=== PATIENT | female | born 1990 | race Caucasian/White ===

== ENCOUNTER 2016-07-28 20:32 | Emergency (ER) | payer OTHER ==
[2016-07-28 21:19] VITALS: RESP 20
--- NOTE | 2016-07-28 22:01 | ED ---
General Adult HPI - General Chief complaint: ENT Stated complaint: Jaw painful to open Time Seen by Provider: 07/28/16 21:31 Source: patient, RN notes reviewed, old records reviewed Mode of arrival: ambulatory Limitations: no limitations - History of Present Illness Initial comments: This is a 25-year-old female to the ER today for evaluation of left jaw tenderness, left jaw pain. Worse with movement. History of jaw dislocation. No recent trauma. No pain control modifying factors for pain at home. Patient' s in no acute distress. - Related Data Home Medications Medication Instructions Recorded Confirmed PARoxetine HCL [Paxil] 40 mg PO DAILY 09/17/15 07/28/16 traMADol HCl [Ultram] 50 mg PO Q6HR PRN 09/17/15 07/28/16 Fluticasone Nasal [place] [Flonase 1 spray EA NOSTRIL DAILY PRN 07/28/16 07/28/16 Nasal [place]] Omeprazole [PriLOSEC] 20 mg PO AC-BID 07/28/16 07/28/16 Allergies Allergy/AdvReac Type Severity Reaction Status Date / Time latex Allergy Rash/Hives Verified 07/28/16 21:27 Review of Systems ROS Statement: Those systems with pertinent positive or pertinent negative responses have been documented in the HPI. ROS Other: All systems not noted in ROS Statement are negative. Past Medical History Additional Past Medical History / Comment(s): club foot History of Any Multi-Drug Resistant Organisms: None Reported Additional Past Surgical History / Comment(s): foot surgery Past Psychological History: Anxiety Smoking Status: Current every day smoker Past Alcohol Use History: None Reported Past Drug Use History: None Reported General Exam Limitations: no limitations General appearance: alert, in no apparent distress Head exam: Present: atraumatic, normocephalic, normal inspection Eye exam: Present: normal appearance, PERRL, EOMI. Absent: scleral icterus, conjunctival injection, periorbital swelling ENT exam: Present: normal exam, mucous membranes moist Neck exam: Present: normal inspection. Absent: tenderness, meningismus, lymphadenopathy Respiratory exam: Present: normal lung sounds bilaterally. Absent: respiratory distress, wheezes, rales, rhonchi, stridor Cardiovascular Exam: Present: regular rate, normal rhythm, normal heart sounds. Absent: systolic murmur, diastolic murmur, rubs, gallop, clicks GI/Abdominal exam: Present: soft, normal bowel sounds. Absent: distended, tenderness, guarding, rebound, rigid Extremities exam: Present: normal inspection, full ROM, normal capillary refill. Absent: tenderness, pedal edema, joint swelling, calf tenderness Back exam: Present: normal inspection Neurological exam: Present: alert, oriented X3, CN II-XII intact Psychiatric exam: Present: normal affect, normal mood Skin exam: Present: warm, dry, intact, normal color. Absent: rash Course Vital Signs 07/28/16 21:14 Temperature 99.4 F Pulse Rate 86 Respiratory 20 Rate Blood Pressure 131/91 O2 Sat by Pulse 100 Oximetry Medical Decision Making - Medical Decision Making 25 year old female to the ER with joint history of drug dislocation left jaw tenderness. Likely TMJ arthritis, patient given anti-inflammatory, pain control for night. Patient be discharged Disposition Clinical Impression: TMJ arthritis, TMJ (dislocation of temporomandibular joint) Disposition: HOME SELF-CARE Condition: Good Instructions: Temporomandibular Disorder (ED) Referrals: Felipe Davis MD [Primary Care Provider] - 1-2 days
[2016-07-28 22:16] VITALS: BP 134/70; PULSE 78; TEMP 98.2
== END 2016-07-28 22:16 | disposition home or self-care (01) ==
LOC: EC 20:32
DX: M26.69 Other specified disorders of temporomandibular joint (principal); F41.9 Anxiety disorder, unspecified; F17.200 Nicotine dependence, unspecified, uncomplicated; Z91.040 Latex allergy status; Z79.899 Other long term (current) drug therapy
CPT/HCPCS: 99283

== ENCOUNTER 2016-08-04 05:30 | Emergency (ER) | payer OTHER ==
[2016-08-04] MEDS ORDERED: ACETAMINOPHEN TAB 500 MG TAB PO STA (06:02)
[2016-08-04] MEDS ORDERED: IBUPROFEN 600 MG TAB PO STA (06:02)
[2016-08-04] MEDS ORDERED: IPRATROPIUM-ALBUTEROL 3 ML NEB INHALATION STA (06:03)
--- NOTE | 2016-08-04 06:06 | ED ---
General Adult HPI - General Source: patient, RN notes reviewed Mode of arrival: ambulatory Limitations: no limitations <Steve Lo - Last Filed: 08/04/16 06:03> <Chuckie Liao - Last Filed: 08/04/16 07:46> - General Chief complaint: Upper Respiratory Infection Stated complaint: ENT, fever Time Seen by Provider: 08/04/16 05:59 - History of Present Illness Initial comments: Patient is a pleasant 25-year-old female presenting to the emergency department with complaints of cough and fever. Symptoms started almost 2 weeks ago. Symptoms have worsened over the past 3 days or so. patient was seen recently at a different ER and diagnosed with pharyngitis.patient does have cough. Patient feels a little bit short of breath only during cough. Cough has had some mild clear white sputum. Patient has had fevers. Patient did not take any medication yet today for fever. No abdominal pain. No leg pain or leg swelling. Patient does have sore throat. (Steve Lo) - Related Data Home Medications Medication Instructions Recorded Confirmed PARoxetine HCL [Paxil] 40 mg PO DAILY 09/17/15 08/04/16 traMADol HCl [Ultram] 50 mg PO Q6HR PRN 09/17/15 08/04/16 Fluticasone Nasal [place] [Flonase 1 spray EA NOSTRIL DAILY PRN 07/28/16 08/04/16 Nasal [place]] Omeprazole [PriLOSEC] 20 mg PO DAILY 07/28/16 08/04/16 Diazepam [Valium] 5 mg PO HS PRN 08/04/16 08/04/16 Naproxen [Naprosyn] 500 mg PO Q12HR PRN 08/04/16 08/04/16 Previous Rx's Medication Instructions Recorded Acetaminophen with Codeine 1 tab PO Q4H PRN #20 tab 07/28/16 [Tylenol w/codeine #3] Acetaminophen with Codeine 1 tab PO Q4H PRN #20 tab 08/04/16 [Tylenol w/codeine #3] Albuterol Sulfate [Proair Hfa] 1 - 2 puff INHALATION Q4H PRN #1 08/04/16 inhaler Azithromycin [Zithromax Z-pack] 0 mg PO DIRECTED #6 tab 08/04/16 Ibuprofen [Motrin] 600 mg PO Q6HR PRN #60 tab 08/04/16 Allergies Allergy/AdvReac Type Severity Reaction Status Date / Time latex Allergy Rash/Hives Verified 08/04/16 07:31 Review of Systems ROS Other: All systems not noted in ROS Statement are negative. Constitutional: Reports: fever, chills Eyes: Denies: eye pain ENT: Reports: throat pain. Denies: ear pain Respiratory: Reports: cough Cardiovascular: Denies: chest pain Endocrine: Reports: fatigue Gastrointestinal: Denies: abdominal pain Genitourinary: Denies: dysuria Musculoskeletal: Denies: back pain Skin: Denies: rash Neurological: Denies: weakness <Steve Lo - Last Filed: 08/04/16 06:03> ROS Other: All systems not noted in ROS Statement are negative. <Chuckie Liao - Last Filed: 08/04/16 07:46> ROS Statement: Those systems with pertinent positive or pertinent negative responses have been documented in the HPI. Past Medical History Additional Past Medical History / Comment(s): club foot History of Any Multi-Drug Resistant Organisms: None Reported Additional Past Surgical History / Comment(s): foot surgery Past Psychological History: Anxiety Smoking Status: Current every day smoker Past Alcohol Use History: None Reported Past Drug Use History: None Reported <Steve Lo - Last Filed: 08/04/16 06:03> General Exam Limitations: no limitations General appearance: alert, in no apparent distress Head exam: Present: atraumatic Eye exam: Present: normal appearance, PERRL ENT exam: Present: other (pharyngeal erythema) Neck exam: Present: normal inspection, lymphadenopathy (with mild tenderness). Absent: meningismus Respiratory exam: Present: rhonchi Cardiovascular Exam: Present: tachycardia GI/Abdominal exam: Present: soft. Absent: tenderness Extremities exam: Present: normal inspection. Absent: pedal edema, calf tenderness Neurological exam: Present: alert Psychiatric exam: Present: normal affect, normal mood Skin exam: Present: normal color. Absent: rash <Steve Lo - Last Filed: 08/04/16 06:03> Course <Steve Lo - Last Filed: 08/04/16 06:03> <Chuckie Liao - Last Filed: 08/04/16 07:46> Vital Signs 08/04/16 08/04/16 08/04/16 05:32 06:12 06:19 Temperature 101.4 F H Pulse Rate 109 H 109 H 100 Respiratory 20 Rate Blood Pressure 142/74 O2 Sat by Pulse 91 L Oximetry 08/04/16 06:55 Temperature 101.3 F H Pulse Rate 88 Respiratory 18 Rate Blood Pressure 119/59 O2 Sat by Pulse 97 Oximetry - Reevaluation(s) Reevaluation #1: 08/04/16 07:45 Patient is in no acute distress, fevers control, no difficulties with breathing , will pulse ox is normal (Chuckie Lioa) Medical Decision Making <Steve Lo - Last Filed: 08/04/16 06:03> - Lab Data Result diagrams: 08/04/16 06:30 08/04/16 06:30 - Radiology Data Radiology results: report reviewed (Chest x-ray is negative for acute disease), image reviewed <Chuckie Liao - Last Filed: 08/04/16 07:46> - Medical Decision Making 25 female here with fever up rest for a cough congestion, sore throat, no risk factors for DVT or PE, no history of DVT or PE. Patient is a stones in no acute distress pulse ox is normal. Patient will be discharged (Chuckie Liao) - Lab Data Lab Results 08/04/16 08/04/16 08/04/16 Range/Units 06:30 06:30 06:30 WBC (3.8-10.6) k/uL RBC (3.80-5.40) m/uL Hgb (11.4-16.0) gm/dL Hct (34.0-46.0) % MCV (80.0-100.0) fL MCH (25.0-35.0) pg MCHC (31.0-37.0) g/dL RDW (11.5-15.5) % Plt Count (150-450) k/uL Neutrophils % % Lymphocytes % % Monocytes % % Eosinophils % % Basophils % % Neutrophils # (1.3-7.7) k/uL Lymphocytes # (1.0-4.8) k/uL Monocytes # (0-1.0) k/uL Eosinophils # (0-0.7) k/uL Basophils # (0-0.2) k/uL Sodium 138 (137-145) mmol/L Potassium 3.9 (3.5-5.1) mmol/L Chloride 105 (98-107) mmol/L Carbon Dioxide 21 L (22-30) mmol/L Anion Gap 12 mmol/L BUN 7 (7-17) mg/dL Creatinine 0.61 (0.52-1.04) mg/dL Est GFR (MDRD) Af Amer >60 (>60 ml/min/1.73 sqM) Est GFR (MDRD) Non-Af >60 (>60 ml/min/1.73 sqM) Glucose 87 (74-99) mg/dL Plasma Lactic Acid Shankar 1.1 (0.7-2.0) mmol/L Calcium 8.8 (8.4-10.2) mg/dL Total Bilirubin 0.7 (0.2-1.3) mg/dL AST 36 (14-36) U/L ALT 32 (9-52) U/L Alkaline Phosphatase 69 (38-126) U/L Total Protein 8.1 (6.3-8.2) g/dL Albumin 4.4 (3.5-5.0) g/dL Influenza Type A RNA Not Detected (Not Detectd) Influenza Type B (PCR) Not Detected (Not Detectd) Group A Strep Rapid (Negative) 08/04/16 08/04/16 Range/Units 06:30 06:30 WBC 6.3 (3.8-10.6) k/uL RBC 4.91 (3.80-5.40) m/uL Hgb 14.6 (11.4-16.0) gm/dL Hct 42.8 (34.0-46.0) % MCV 87.2 (80.0-100.0) fL MCH 29.7 (25.0-35.0) pg MCHC 34.1 (31.0-37.0) g/dL RDW 13.2 (11.5-15.5) % Plt Count 159 (150-450) k/uL Neutrophils % 79 % Lymphocytes % 13 % Monocytes % 5 % Eosinophils % 1 % Basophils % 0 % Neutrophils # 4.9 (1.3-7.7) k/uL Lymphocytes # 0.8 L (1.0-4.8) k/uL Monocytes # 0.3 (0-1.0) k/uL Eosinophils # 0.0 (0-0.7) k/uL Basophils # 0.0 (0-0.2) k/uL Sodium (137-145) mmol/L Potassium (3.5-5.1) mmol/L Chloride (98-107) mmol/L Carbon Dioxide (22-30) mmol/L Anion Gap mmol/L BUN (7-17) mg/dL Creatinine (0.52-1.04) mg/dL Est GFR (MDRD) Af Amer (>60 ml/min/1.73 sqM) Est GFR (MDRD) Non-Af (>60 ml/min/1.73 sqM) Glucose (74-99) mg/dL Plasma Lactic Acid Shankar (0.7-2.0) mmol/L Calcium (8.4-10.2) mg/dL Total Bilirubin (0.2-1.3) mg/dL AST (14-36) U/L ALT (9-52) U/L Alkaline Phosphatase (38-126) U/L Total Protein (6.3-8.2) g/dL Albumin (3.5-5.0) g/dL Influenza Type A RNA (Not Detectd) Influenza Type B (PCR) (Not Detectd) Group A Strep Rapid Negative (Negative) Disposition <Steve Lo - Last Filed: 08/04/16 06:03> <Chuckie Liao - Last Filed: 08/04/16 07:46> Clinical Impression: Upper respiratory infection, Bronchitis Disposition: HOME SELF-CARE Condition: Good Instructions: Upper Respiratory Infection (ED) Prescriptions: Acetaminophen with Codeine [Tylenol w/codeine #3] 1 tab PO Q4H PRN #20 tab PRN Reason: Pain Albuterol Sulfate [Proair Hfa] 1 - 2 puff INHALATION Q4H PRN #1 inhaler PRN Reason: Shortness Of Breath Azithromycin [Zithromax Z-pack] 0 mg PO DIRECTED #6 tab Ibuprofen [Motrin] 600 mg PO Q6HR PRN #60 tab PRN Reason: Pain Referrals: Felipe Davis MD [Primary Care Provider] - 1-2 days
[2016-08-04] MEDS: SODIUM CHLORIDE 0.9% 500 ML IV SCH ×2 (06:27→07:06)
[2016-08-04 06:44] LABS: Basophils % (A) 0 %; CH 30.8; CHCM 35.5; Eosinophils % (A) 1 %; HCT 42.8 % (34.0-46.0); HDW 2.76; HGB 14.6 gm/dL (11.4-16.0); Luc # (Auto) 0.18; Luc % (Auto) 3; Lymphocytes # (A) 0.8 k/uL (1.0-4.8); Lymphocytes % (A) 13 %; MCH 29.7 pg (25.0-35.0); MCHC 34.1 g/dL (31.0-37.0); MCV 87.2 fL (80.0-100.0); Mean Platelet Volume 8.1; Monocytes # (A) 0.3 k/uL (0-1.0); Monocytes % (A) 5 %; Neutrophils # (A) 4.9 k/uL (1.3-7.7); Neutrophils % (A) 79 %; RBC 4.91 m/uL (3.80-5.40); RDW 13.2 % (11.5-15.5); WBC 6.3 k/uL (3.8-10.6); WBC (Perox) 6.01
[2016-08-04 06:56] VITALS: RESP 18
[2016-08-04 06:56] LABS: ALT 32 U/L (9-52); AST 36 U/L (14-36); Alkaline Phosphatase 69 U/L (38-126); Anion Gap 12 mmol/L; Blood Urea Nitrogen 7 mg/dL (7-17); Calcium 8.8 mg/dL (8.4-10.2); Carbon Dioxide 21 mmol/L (22-30); Chloride 105 mmol/L (98-107); Glucose 87 mg/dL (74-99); Non-African American GFR(MDRD) >60 (>60 ml/min/1.73 sqM); Sodium 138 mmol/L (137-145); Total Bilirubin 0.7 mg/dL (0.2-1.3); Total Protein 8.1 g/dL (6.3-8.2)
[2016-08-04 07:20] LABS: Potassium 3.9 mmol/L (3.5-5.1)
[2016-08-04] MEDS ORDERED: AZITHROMYCIN 500 MG TAB PO STA (07:44)
[2016-08-04 07:59] VITALS: BP 104/57; PULSE 72; TEMP 98.4
--- NOTE | 2016-08-04 08:06 | XR ---
EXAM: XR Chest, 2 Views CLINICAL HISTORY: Reason: Fever TECHNIQUE: Frontal and lateral views of the chest. COMPARISON: Chest x-ray 09/17/2015. FINDINGS: Lungs: Unremarkable. No consolidation. Pleural space: Unremarkable. No pneumothorax. Heart: Unremarkable. No cardiomegaly. Mediastinum: Unremarkable. Bones/joints: Unremarkable. IMPRESSION: Normal chest x-rays.
== END 2016-08-04 07:59 | disposition home or self-care (01) ==
LOC: EC 05:30
DX: J06.9 Acute upper respiratory infection, unspecified (principal); J40 Bronchitis, not specified as acute or chronic; R00.0 Tachycardia, unspecified; F41.9 Anxiety disorder, unspecified; F17.200 Nicotine dependence, unspecified, uncomplicated; Z79.899 Other long term (current) drug therapy; Z91.040 Latex allergy status
CPT/HCPCS: 36415; 71020; 80053; 83605; 85025; 87040; 87081; 87430; 87502; 94640; 96360; 99284

== ENCOUNTER 2017-10-21 23:42 | Emergency (ER) | payer OTHER ==
--- NOTE | 2017-10-22 00:03 | ED ---
Upper Extremity HPI - General Source: patient, EMS Mode of arrival: EMS Limitations: no limitations <Penelope Zuluaga - Last Filed: 10/22/17 02:27> <Ericka Alvarenga - Last Filed: 10/22/17 06:22> - General Chief Complaint: Extremity Injury, Upper Stated Complaint: Fall-sholder pain Time Seen by Provider: 10/21/17 23:52 - History of Present Illness Initial Comments: 27-year-old female patient presented to the emergency department today for evaluation of right shoulder injury. Patient states that she was going down the porch steps when she missed a step and fell down approximately 4-5 steps. Patient states that she did land with her arm extended above her head and behind her. States that she initially had minor what she thought was muscular pain in the pain suddenly increased. Patient states the pain radiates to about her mid humeral level. Patient denies any numbness or tingling to the right arm. She denies any neck or back pain. Denies hitting her head or losing consciousness during the fall. Patient denies any headache, chest pain, shortness of breath, dizziness, weakness, abdominal pain, nausea, vomiting, or difficulties with bowel movements or urination. (Penelope Zuluaga) - Related Data Previous Rx's Medication Instructions Recorded Ibuprofen [Motrin] 600 mg PO Q8HR PRN #30 tab 10/22/17 Allergies Allergy/AdvReac Type Severity Reaction Status Date / Time latex Allergy Rash/Hives Verified 10/21/17 23:50 Review of Systems ROS Other: All systems not noted in ROS Statement are negative. <Penelope Zuluaga - Last Filed: 10/22/17 02:27> ROS Other: All systems not noted in ROS Statement are negative. <Ericka Alvarenga - Last Filed: 10/22/17 06:22> ROS Statement: Those systems with pertinent positive or pertinent negative responses have been documented in the HPI. Past Medical History Additional Past Medical History / Comment(s): club foot, marjauna use History of Any Multi-Drug Resistant Organisms: None Reported Additional Past Surgical History / Comment(s): foot surgery Past Psychological History: Anxiety, Depression Smoking Status: Current every day smoker Past Alcohol Use History: None Reported Past Drug Use History: None Reported <Penelope Zuluaga - Last Filed: 10/22/17 02:27> General Exam Limitations: no limitations General appearance: alert, in no apparent distress, other (This is a well- developed, well-nourished adult female patient in no acute distress. Vital signs upon presentation Are 98.3F, pulse 57, respirations 18, blood pressure 128/51, pulse ox 98% on room air.) Head exam: Present: atraumatic, normocephalic, normal inspection Eye exam: Present: normal appearance, PERRL, EOMI. Absent: scleral icterus, conjunctival injection, periorbital swelling ENT exam: Present: normal exam, normal oropharynx, mucous membranes moist Neck exam: Present: normal inspection, full ROM, other (Nontender, no step-off, no deformity to firm midline palpation of the posterior cervical spine. Full range of motion without pain or limitation.). Absent: tenderness, meningismus, lymphadenopathy Respiratory exam: Present: normal lung sounds bilaterally. Absent: respiratory distress, wheezes, rales, rhonchi, stridor Cardiovascular Exam: Present: regular rate, normal rhythm, normal heart sounds. Absent: systolic murmur, diastolic murmur, rubs, gallop, clicks GI/Abdominal exam: Present: soft, normal bowel sounds. Absent: distended, tenderness, guarding, rebound, rigid Back exam: Present: normal inspection, other (Nontender, no step-off, no deformity to firm midline palpation of the thoracic and lumbar vertebrae. Full range of motion without pain or limitation.). Absent: vertebral tenderness Neurological exam: Present: alert, oriented X3, CN II-XII intact Psychiatric exam: Present: normal affect, normal mood Skin exam: Present: warm, dry, intact, normal color. Absent: rash <Penelope Zuluaga M - Last Filed: 10/22/17 02:27> Vital Signs 10/21/17 10/22/17 23:44 01:21 Temperature 98.3 F 98.2 F Pulse Rate 57 L 52 L Respiratory 18 16 Rate Blood Pressure 128/51 97/51 O2 Sat by Pulse 98 97 Oximetry Medical Decision Making - Radiology Data Radiology results: report reviewed, image reviewed <Penelope Zuluaga M - Last Filed: 10/22/17 02:27> <Ericka Alvarenga P - Last Filed: 10/22/17 06:22> - Medical Decision Making 27-year-old female patient presented to the emergency department today for evaluation of right shoulder injury after falling down some stairs. Physical examination did reveal tenderness over the entirety of the shoulder. Patient had increased pain with range of motion. Neurovascular status was intact. She had no cervical, thoracic, or lumbar spinal tenderness. She never lost consciousness and had no complaints of headache. X-rays of the right shoulder were negative for any fractures or dislocations. We did discuss possible muscular versus tendinous injury as a cause for her symptoms. She will be given a shoulder immobilizer. We did discuss gentle range of motion to prevent frozen shoulder. She is instructed to follow-up with orthopedics for further evaluation. Return parameters were discussed in detail. She verbalizes understanding and agrees with this plan. (Penelope Zuluaga) I personally saw and examined the patient. I reviewed and agree with the mid- level provider findings including all diagnostic interpretations and treatment plans as written unless otherwise stated. I was present for lockhart portions of any procedures performed. (Ericka Alvarenga) - Radiology Data 3 views of the right shoulder were obtained. There is no fracture nor dislocation noted. Joint spaces are normal. Soft tissues appear normal. There are no pathologic calcifications. Impression by Dr. Woods shows normal right shoulder. X-ray of the right clavicle is obtained. There is no sign of fracture or dislocation. Soft tissues appear normal. Impression by Dr. Woods shows normal right clavicle. (Penelope Zuluaga) Disposition Is patient prescribed a controlled substance at d/c from ED?: No Time of Disposition: 00:43 <Penelope Zuluaga - Last Filed: 10/22/17 02:27> <Ericka Alvarenga - Last Filed: 10/22/17 06:22> Clinical Impression: Right shoulder strain Disposition: HOME SELF-CARE Condition: Good Instructions: Rotator Cuff Injury (ED), Shoulder Pain (ED) Additional Instructions: Apply ice for the first 24 hours to the right shoulder. Switch to warm moist heat after that. Use shoulder immobilizer for comfort however do start trying to perform gentle range of motion exercises within the first 24 hours. Follow- up with orthopedics for further evaluation. Return here immediately for any new , worsening, or concerning symptoms. Prescriptions: Ibuprofen [Motrin] 600 mg PO Q8HR PRN #30 tab PRN Reason: Pain Referrals: Lina Shook MD [Primary Care Provider] - 1-2 days Patrice Robles MD [STAFF PHYSICIAN] - 1-2 days
--- NOTE | 2017-10-22 00:20 | XR ---
EXAMINATION TYPE: XR shoulder complete RT DATE OF EXAM: 10/22/2017 COMPARISON: 09/17/2015 HISTORY: Shoulder pain TECHNIQUE: 3 views FINDINGS: There is no fracture nor dislocation. Joint spaces are normal. Soft tissues appear normal. There are no pathologic calcifications. IMPRESSION: Normal right shoulder.
--- NOTE | 2017-10-22 00:21 | XR ---
EXAMINATION TYPE: XR clavicle RT DATE OF EXAM: 10/22/2017 COMPARISON: NONE HISTORY: Pain TECHNIQUE: 2 views FINDINGS: There is no sign of fracture nor dislocation. Soft tissues appear normal. IMPRESSION: Normal right clavicle.
[2017-10-22] MEDS ORDERED: ACET/COD 300 MG/30 MG STARTER PACK 6 TAB BTL PO STA (00:49)
[2017-10-22 01:25] VITALS: BP 97/51; PULSE 52; RESP 16; TEMP 98.2
== END 2017-10-22 01:26 | disposition home or self-care (01) ==
LOC: EC 23:42
DX: S46.911A Strain of unspecified muscle, fascia and tendon at shoulder and upper arm level, right arm, initial encounter (principal); F17.200 Nicotine dependence, unspecified, uncomplicated; Z91.040 Latex allergy status; W10.8XXA Fall (on) (from) other stairs and steps, initial encounter; Y93.89 Activity, other specified; Y92.008 Other place in unspecified non-institutional (private) residence as the place of occurrence of the external cause
CPT/HCPCS: 99284 ×2; 73000; 73030; L3670

== ENCOUNTER 2020-12-28 09:09 | Emergency (ER) | payer OTHER ==
[2020-12-28 09:13] VITALS: BP 93/55; PULSE 96; TEMP 98.6
--- NOTE | 2020-12-28 09:28 | ED ---
URI HPI - General Chief Complaint: Upper Respiratory Infection Stated Complaint: ENT Time Seen by Provider: 12/28/20 09:17 Source: patient, RN notes reviewed Mode of arrival: ambulatory Limitations: no limitations - History of Present Illness Initial Comments: patient is 30-year-old female presenting to the ED today for four-day history of cough and congestion. Patient states that his sinus pressure located behind her eyes that is worsening each day. Patient states that she is worried about COVID-19 virus and wishes to be swabed. She denies any nausea, vomiting, fever, no changes in diet or bowel movements. Patient describes general weakness and fatigue but no reported pain. - Related Data Previous Rx's Medication Instructions Recorded Ibuprofen [Motrin] 600 mg PO Q8HR PRN #30 tab 10/22/17 Allergies Allergy/AdvReac Type Severity Reaction Status Date / Time latex Allergy Rash/Hives Verified 12/28/20 09:13 Review of Systems ROS Statement: Those systems with pertinent positive or pertinent negative responses have been documented in the HPI. ROS Other: All systems not noted in ROS Statement are negative. Past Medical History Additional Past Medical History / Comment(s): club foot, marjauna use History of Any Multi-Drug Resistant Organisms: None Reported Additional Past Surgical History / Comment(s): foot surgery Past Psychological History: Anxiety, Depression Smoking Status: Current every day smoker Past Alcohol Use History: None Reported Past Drug Use History: Marijuana General Exam Limitations: no limitations General appearance: alert, in no apparent distress ENT exam: Present: normal exam, mucous membranes moist Respiratory exam: Present: normal lung sounds bilaterally. Absent: respiratory distress, wheezes, rales, rhonchi, stridor Cardiovascular Exam: Present: regular rate, normal rhythm, normal heart sounds. Absent: systolic murmur, diastolic murmur, rubs, gallop, clicks GI/Abdominal exam: Present: soft, normal bowel sounds. Absent: distended, tenderness, guarding, rebound, rigid Neurological exam: Present: alert, oriented X3 Skin exam: Present: warm, dry, intact, normal color. Absent: rash Course Vital Signs 12/28/20 09:10 Temperature 98.6 F Pulse Rate 96 Respiratory 20 Rate Blood Pressure 93/55 O2 Sat by Pulse 100 Oximetry Medical Decision Making - Medical Decision Making COVID-19 spot was negative. Patient has a viral URI. Patient be discharged in stable condition return parameters were discussed. - Lab Data Lab Results 12/28/20 Range/Units 09:31 Coronavirus (PCR) Not Detected (Not Detectd) Disposition Clinical Impression: Acute upper respiratory infection Disposition: HOME SELF-CARE Condition: Stable Instructions (If sedation given, give patient instructions): Upper Respiratory Infection (ED) Additional Instructions: Please return to the Emergency Department if symptoms worsen or any other concerns. Is patient prescribed a controlled substance at d/c from ED?: No Referrals: Lina Shook MD [Primary Care Provider] - 1-2 days Time of Disposition: 10:26
[2020-12-28 10:53] VITALS: RESP 18
== END 2020-12-28 10:57 | disposition home or self-care (01) ==
LOC: EC 09:09
DX: J06.9 Acute upper respiratory infection, unspecified (principal); F17.200 Nicotine dependence, unspecified, uncomplicated; F12.90 Cannabis use, unspecified, uncomplicated; Z79.1 Long term (current) use of non-steroidal anti-inflammatories (NSAID)
CPT/HCPCS: 87635; 99283

== ENCOUNTER → 2022-01-01 | Outpatient (CLI) | payer OTHER ==
--- NOTE | 2022-01-02 09:30 | US ---
EXAMINATION TYPE: US pelvis complete transvag DATE OF EXAM: 01/01/2022 COMPARISON: NONE CLINICAL HISTORY: 31-year-old female N94.6 DYSMENORRHEA, UNSPECIFIED. Endometriosis, PCOS, heavy mens es TECHNIQUE: Transvaginal (TV) and Transabdominal (TA) . Transabdominal sonographic images of the pel vis were acquired. Transvaginal sonographic images were medically necessary to better assess the fol lowing anatomy: per order Date of LMP: 12/10/21 FINDINGS: EXAM MEASUREMENTS: Uterus: 7.4 x 4.1 x 5.1 cm Endometrial Stripe: 0.8 cm Right Ovary: 3.6 x 1.7 x 1.3 cm for a volume of 4.2 mL Left Ovary: 2.3 x 1.6 x 1.5 cm for a volume of 2.8 mL 1. Uterus: Anteverted. Hypoechoic area posterior body = 1.1 x 1.0cm suggesting a small intramural focal fibroid along the posterior body/lower uterine segment junction. There are cervical nabothian c ysts measuring up to 8 mm. 2. Endometrium: wnl 3. Right Ovary: Some normal-appearing follicular changes noted 4. Left Ovary: Some normal-appearing follicular changes noted. Paraovarian cyst = 1.1 x 1.4 x 1.4cm 5. Bilateral Adnexa: wnl 6. Posterior cul-de-sac: wnl IMPRESSION: 1. A round 1.1 cm focal intramural fibroid along the posterior uterine body/lower uterine segment. 2. Endometrial stripe measuring 8 mm, within normal limits. 3. Normal-appearing follicular change in the ovaries. Both ovaries measure relatively small to 4.2 mL . Incidental paraovarian cyst on the left measuring 1.4 cm.
== END | disposition home or self-care (01) ==
LOC: RADUSWWP 15:34
PROVIDERS: ATTEND Obstetrics & Gynecology
DX: D25.1 Intramural leiomyoma of uterus (principal)
CPT/HCPCS: 76830; 76856

== ENCOUNTER 2022-04-19 16:55 | Emergency (ER) | payer OTHER ==
--- NOTE | 2022-04-19 18:27 | ED ---
General Adult HPI - General Chief complaint: Recheck/Abnormal Lab/Rx Stated complaint: post op Time Seen by Provider: 04/19/22 17:58 Source: patient Mode of arrival: ambulatory Limitations: no limitations - History of Present Illness Initial comments: 31-year-old well-appearing patient presents with complaints of rectal pain today. Patient states she had a hysterectomy with Dr Snow at [facility] 3 days ago. She was placed on stool softeners and has been having normal bowel movements. She developed some rectal pain and swelling today. Has been using hydrocortisone cream and stool softeners with no relief. -: days(s) (1) Location: buttocks (rectal) Severity scale (1-10): 10 Quality: burning Consistency: constant Associated Symptoms: denies other symptoms Treatments Prior to Arrival: none (Hydrocortisone and stool softener) - Related Data Previous Rx's Medication Instructions Recorded Ibuprofen [Motrin] 600 mg PO Q8HR PRN #30 tab 10/22/17 Allergies Allergy/AdvReac Type Severity Reaction Status Date / Time latex Allergy Rash/Hives Verified 04/19/22 17:34 Review of Systems ROS Statement: Those systems with pertinent positive or pertinent negative responses have been documented in the HPI. ROS Other: All systems not noted in ROS Statement are negative. Past Medical History Additional Past Medical History / Comment(s): club foot, marjauna use History of Any Multi-Drug Resistant Organisms: None Reported Past Surgical History: Hysterectomy Additional Past Surgical History / Comment(s): foot surgery Past Psychological History: Anxiety, Depression Smoking Status: Current every day smoker Past Alcohol Use History: None Reported Past Drug Use History: Marijuana General Exam Limitations: no limitations General appearance: alert, in no apparent distress Head exam: Present: atraumatic Eye exam: Present: normal appearance Neck exam: Absent: meningismus Respiratory exam: Absent: respiratory distress, accessory muscle use Cardiovascular Exam: Present: tachycardia GI/Abdominal exam: Present: soft. Absent: rigid Rectal exam: Present: hemorrhoids (3 swollen nonthrombosed external hemorrhoids), tenderness Extremities exam: Present: normal capillary refill. Absent: pedal edema Neurological exam: Present: alert, oriented X3 Psychiatric exam: Present: normal affect, normal mood Skin exam: Present: warm, dry, normal color. Absent: cyanosis, diaphoretic, petechiae, pallor Course Vital Signs 04/19/22 04/19/22 04/19/22 17:31 18:30 18:35 Temperature 98.9 F 98.3 F Pulse Rate 114 H 68 62 Respiratory 18 17 17 Rate Blood Pressure 95/6 89/55 95/52 O2 Sat by Pulse 97 100 100 Oximetry Medical Decision Making - Medical Decision Making On rectal exam there are three external hemorrhoids. No active bleeding. States that she did have a soft bowel movement this morning. Has been using hydrocortisone cream and stool softeners. Denies any fevers. No abdominal pain nausea vomiting. She was encouraged to use sitz baths frequently and [id number] Tucks pads in addition to her current treatment. Follow-up with her primary care doctor. Case discussed with Dr. Coon Was pt. sent in by a medical professional or institution? @ -no Did you speak to anyone other than the patient for history? @ -no Did you review nursing and triage notes? @ -yes i agree Were old charts reviewed? @ -no Differential Diagnosis? @ -Thrombosed hemorrhoids, external hemorrhoids, abscess, rectal prolapse What testing was considered but not performed? (CT, X-rays, U/S, labs)? Why? @ None What meds were considered but not given? Why? @ -None Did you discuss the management of the patient with other professionals? @ -no Did you reconcile home meds? @ -no Was smoking cessation discussed for >3mins.? @ -no Was critical care preformed (if so, how long)? @ -no Were there social determinants of health that impacted care today? How? (Homelessness, low income, unemployed, alcoholism, drug addiction, transportation, low edu. Level, literacy, decrease access to med. care, fpc, rehab)? @ -no Was there de-escalation of care discussed even if they declined? (Discuss DNR or withdrawal of care, Hospice)? @ -no What co-morbidities impacted this encounter? (DM, HTN, Smoking, COPD, CAD, Cancer, CVA, Hep., AIDS, mental health diagnosis, sleep apnea, morbid obesity)? @ -none Was patient admitted / discharged? @ -discharged Undiagnosed new problem with uncertain prognosis? @ -[none] Drug Therapy requiring intensive monitoring for toxicity (Heparin, Nitro, Insulin, Cardizem)? @ -no Were any procedures done? @ -no Diagnosis/symptom? @ -External hemorrhoids Acute, or Chronic, or Acute on Chronic? @ -acute Uncomplicated (without systemic symptoms) or Complicated (systemic symptoms)? @ -Uncomplicated Side effects of treatment? @ -[none] Exacerbation, Progression, or Severe Exacerbation] @ -[no] Poses a threat to life or bodily function? @ -[no] Disposition Clinical Impression: External hemorrhoid Disposition: HOME SELF-CARE Condition: Good Instructions (If sedation given, give patient instructions): Hemorrhoids (ED), Sitz Bath (DC) Additional Instructions: Continue using hydrocortisone and stool softeners. Use sitz baths frequently along with Tucks pads for pain relief topically. Follow-up with your primary care doctor and discuss with your doctor possible hemorrhoidectomy. Is patient prescribed a controlled substance at d/c from ED?: No Referrals: Lina Shook MD [Primary Care Provider] - 1-2 days Derian Rogers MD [Medical Doctor] - 1-2 days Time of Disposition: 18:27
[2022-04-19 18:34] VITALS: RESP 17; TEMP 98.3
[2022-04-19 18:35] VITALS: BP 95/52; PULSE 62
== END 2022-04-19 18:41 | disposition home or self-care (01) ==
LOC: EC 16:55
DX: K64.4 Residual hemorrhoidal skin tags (principal); F17.200 Nicotine dependence, unspecified, uncomplicated; F12.90 Cannabis use, unspecified, uncomplicated
CPT/HCPCS: 99283